=== PATIENT | male | born 1985 | race Caucasian/White ===

== ENCOUNTER 2019-02-27 07:54 | Emergency (ER) | payer OTHER, SELFPAY ==
[~2019-02-27] VITALS: Ht 177.8 cm; Wt 60.5 kg
--- NOTE | 2019-02-27 08:40 | NUR ---
To Ultrasound prior to ability to void. Provided with water so he can attempt to void for ua when he returns
[2019-02-27 09:50] VITALS: BP 122/49
--- NOTE | 2019-02-27 09:50 | NUR ---
ua sent pain remains controlled Provider to [facility] to communicate ultrasound results
[2019-02-27 09:58] LABS: MICROSCOPIC NOT IND
[2019-02-27 10:03] LABS: CULTURE INDICATED? NO
--- NOTE | 2019-02-27 10:11 | NUR ---
ua resulted, provider asked for d/c paperwork
== END 2019-02-27 10:48 | disposition home or self-care (01) ==
LOC: ED 10:15
DX: S39.011A Strain of muscle, fascia and tendon of abdomen, initial encounter (principal); R10.31 Right lower quadrant pain; X50.0XXA Overexertion from strenuous movement or load, initial encounter; Y93.89 Activity, other specified
CPT/HCPCS: 76870; 81003; 93975; 99284